=== PATIENT | female | born 1990 | race Asian ===

== ENCOUNTER 2020-01-03 07:43 | Emergency (ER) | payer MEDICAID ==
[~2020-01-03] VITALS: Ht 165.1 cm; Wt 56.7 kg
[2020-01-03 07:54] VITALS: Ht 165.1 cm; Wt 56.7 kg
[2020-01-03 08:21] LABS: BASOPHIL % 0.5 % (0-2); PLATELET COUNT 198 x10^3mcL (130-400); RED CELL DISTRIBUTION WIDTH 13.5 % (11.5-14.5)
[2020-01-03 08:33] LABS: CALCIUM 8.6 mg/dL (8.5-10.1); CARBON DIOXIDE 25.8 mmol/L (21-32); CHLORIDE SERUM 105 mmol/L (98-107); CREATININE SERUM 0.7 mg/dL (0.6-1.0); GFR1 > 60 mL/min; GLUCOSE SERUM 69 mg/dL (74-106); POTASSIUM SERUM 4.1 mmol/L (3.5-5.1); SODIUM SERUM 141 mmol/L (136-145)
[2020-01-03 08:38] LABS: ALBUMIN 4.1 g/dL (3.4-5.0); ALKALINE PHOSPHATASE 63 U/L (46-116); ALT/SGPT 24 U/L (14-59); AST/SGOT 16 U/L (15-37); TOTAL PROTEIN, SERUM 7.8 g/dL (6.4-8.2)
[2020-01-03 08:50] LABS: T3 TOTAL 0.86 ng/mL
[2020-01-03 09:09] LABS: AMPHETAMINE QUAL UR NONE DETECTED (See below)
[2020-01-03 09:16] LABS: FREE T4 0.82 ng/dL (0.76-1.46); FREE THYROXINE INDEX 1.8 ug/dL (1.4-4.5); T4(THYROXINE) 5.6 ug/dL (4.7-13.3)
[2020-01-03 10:00] VITALS: BP 134/78
== END 2020-01-03 10:00 | disposition home or self-care (01) ==
LOC: ED 07:43
PROVIDERS: Emergency Medicine
DX: R07.89 Other chest pain (principal); F41.9 Anxiety disorder, unspecified
CPT/HCPCS: 84439; Q0092

== ENCOUNTER 2020-01-25 13:33 | Emergency (ER) | payer MEDICAID ==
[2020-01-25 15:57] VITALS: BP 121/75
== END 2020-01-25 15:57 | disposition home or self-care (01) ==
LOC: ED 13:33
DX: J30.9 Allergic rhinitis, unspecified (principal)
CPT/HCPCS: J1885